=== PATIENT | male | born 1950 | race Caucasian/White ===

== ENCOUNTER 2020-05-09 16:44 | Outpatient (REF) | payer MEDICARE, BC, SELFPAY ==
--- NOTE | 2020-05-09 16:55 | CT_ITS ---
EXAMINATION: CT CHEST WITHOUT CONTRAST CLINICAL INFORMATION: Follow-up pneumonia COMPARISON: Previous chest CT December 2019 and chest x-ray January 2020 TECHNIQUE: Multidetector volumetric CT imaging of the chest was done. Axial MIP volume rendering provided. Sagittal and coronal reformatted images were obtained. This CT examination was performed using dose optimization techniques as appropriate, variously including the following: *Automated exposure control *Adjustment of mA and/or kV according to patient size (this includes techniques or standardized protocols for targeted exams where dose is matched to indication/reason for exam; i.e. extremities or head) *Use of iterative reconstruction technique DLP: 268 mGy-cm FINDINGS: LUNGS: There is evidence of mild paraseptal emphysema. There is new right upper lobe volume loss. The previously identified parenchymal consolidation with air bronchograms and cavity formation in the anterior segment of the right upper lobe and central masslike consolidation in the right middle lobe has significantly decreased in size. There is focal bronchiectasis, and atelectasis or scarring seen in the anterior segment of the right upper lobe. This has areas of atelectasis or spiculated that extends to the anterior pleural surface and the minor fissure. Appearance is suggestive of postinflammatory scarring. There are small surrounding groundglass attenuation areas, for example in the right upper lobe axial image 208 series 5 that appear peribronchial and more geographic areas of increased attenuation in the right middle lobe, for example axial image 225 series 5. There is a 3 mm peripheral right lower lobe nodule axial image 320 series 5. The lungs are otherwise clear. The previously identified heterogeneous left upper lobe nodule axial image 28 series 4 and patchy peribronchial nodules in the right upper lobe on December 2019 exam are no longer seen. No endobronchial or endotracheal lesion is seen. MEDIASTINUM: The visualized thyroid gland is unremarkable. There are small mediastinal lymph nodes. These appear decreased in size from previous exam. The heart does not appear enlarged. There is coronary artery and aortic valve calcification. The ascending thoracic aorta is slightly dilated measuring up to 4.3 cm. The aortic arch and descending thoracic aorta are upper normal in size. There is no pericardial effusion. There are small cardiophrenic angle or anterior diaphragmatic lymph nodes that appear unchanged. PLEURA: There is no pleural effusion. No pleural mass or thickening. AXILLA: No lymphadenopathy. UPPER ABDOMEN: The spleen is enlarged measuring at least 14.5 cm in length. There is a 1.2 cm low-attenuation lesion seen in the spleen. There are bilateral renal cysts. There is a small 3 mm stone in the lower pole of the right kidney. There is mild dilatation of the right renal pelvis and visualized right proximal ureter. There are postsurgical changes to the stomach. OSSEOUS STRUCTURES: There are degenerative changes of the spine. IMPRESSION: Interval improvement in right upper and right middle lobe pneumonia. There is residual scarring, focal bronchiectasis and volume loss to the right upper lobe. There are small peribronchial areas of groundglass attenuation seen in the right upper lobe and more geographic area of groundglass attenuation in the adjacent right middle lobe. Mild paraseptal emphysema. Coronary artery calcification. Slightly dilated ascending thoracic aorta. Enlarged spleen. Stable 1.2 cm splenic lesion. Bilateral renal cysts. Small right lower pole renal stone. Fullness/mild dilatation of the visualized right renal pelvis and proximal ureter. Postsurgical changes to the stomach.
== END 2020-05-09 16:45 | disposition home or self-care (01) ==
LOC: HO.CT 16:44
PROVIDERS: Visit Provider Internal Medicine
DX: R91.8 Other nonspecific abnormal finding of lung field (principal)
CPT/HCPCS: 71250

== ENCOUNTER → 2020-05-15 13:44 | Outpatient (BNVA) | payer MEDICARE, BC, SELFPAY | PROVIDERS: Visit Provider Internal Medicine | DX: G47.33 Obstructive sleep apnea (adult) (pediatric) (principal); Z87.01 Personal history of pneumonia (recurrent) | CPT/HCPCS: 99213 ==

== ENCOUNTER 2020-11-06 12:42 | Outpatient (REF) | payer MEDICARE, BC, SELFPAY ==
--- NOTE | ~2020-11-06 | CT_ITS ---
EXAMINATION: CT CHEST WITHOUT CONTRAST CLINICAL INFORMATION: Pneumonia. COMPARISON: CT chest 05/09/2020. TECHNIQUE: Multidetector volumetric CT imaging of the chest was done. Axial MIP volume rendering provided. Sagittal and coronal reformatted images were obtained. This CT examination was performed using dose optimization techniques as appropriate, variously including the following: *Automated exposure control *Adjustment of mA and/or kV according to patient size (this includes techniques or standardized protocols for targeted exams where dose is matched to indication/reason for exam; i.e. extremities or head) *Use of iterative reconstruction technique DLP: 190 mGy-cm FINDINGS: RAILCAR SWITCHER: Unremarkable chest exam. LUNGS: The lungs are well-expanded and clear of acute pneumonic process. There are postsurgical changes in the right upper lobe with minimal scarring. No pulmonary nodule, mass or groundglass density seen. MEDIASTINUM: The thyroid lobes are symmetric and normal. The central trachea and the bronchi are widely patent. Heart size and the great vessels are normal caliber. No abnormal size mediastinal lymph nodes or mass seen. There is no pericardial effusion. Coronary artery calcifications are noted. PLEURA: There is no pleural effusion. No pleural mass or thickening. AXILLA: No lymphadenopathy. UPPER ABDOMEN: Visualized liver, spleen, pancreas and bilateral adrenal glands are unremarkable. Gastric surgical changes are seen. There is a small 2.7 cm cyst upper pole right kidney OSSEOUS STRUCTURES: There there is no lytic or sclerotic process. There is mild ventral spondylosis throughout mid and lower dorsal spine. CT/CT chest wo con IMPRESSION: Postsurgical changes along the right upper lobe with scarring. No recurrent mass, lymph node or acute consolidation. Post surgical changes along the post gastric surgical changes. 2.7 cm upper pole right renal cyst
== END 2020-11-06 12:43 | disposition home or self-care (01) ==
LOC: HO.CT 12:42
PROVIDERS: Visit Provider Internal Medicine
DX: J18.9 Pneumonia, unspecified organism (principal)
CPT/HCPCS: 71250

== ENCOUNTER → 2021-02-11 10:43 | Outpatient (BNVA) | payer MEDICARE, BC, SELFPAY | PROVIDERS: Visit Provider Internal Medicine | DX: J98.4 Other disorders of lung (principal); G47.33 Obstructive sleep apnea (adult) (pediatric) | CPT/HCPCS: 99212 ==

== ENCOUNTER → 2022-04-14 11:02 | Outpatient (BNVA) | payer MEDICARE, BC, SELFPAY | PROVIDERS: Visit Provider Internal Medicine | DX: G47.33 Obstructive sleep apnea (adult) (pediatric) (principal); J18.9 Pneumonia, unspecified organism; J98.4 Other disorders of lung | CPT/HCPCS: 99212 ==

== ENCOUNTER 2025-02-25 12:40 | Outpatient (AMB) | payer MEDICARE, BC, SELFPAY ==
--- OUTSIDE RECORDS SUMMARY | 2024-05-15 11:12 | XMS_ITS | Encounter Summary ---
Author Organization [facility] [place] [address] Care Team Providers Care Hedge Fund Manager Name Role Phone Ghanshyam Ceja DO Primary Care Provider [phone] Encounter Details Date Type Department Care Team (Latest Contact Info) Description 05/15/2024 11:12 AM EDT Hospital Encounter TH HISTORIC ENCOUNTERS EASTERN CONVERSION ONLY Migraine without aura, not intractable, without status migrainosus Social History Tobacco Use Types Packs/Day Years Used Date Smoking Tobacco: Former Cigarettes Q uit: 08/01/2000 Smokeless Tobacco: Never Alcohol Use Standard Drinks/Week Comments No 0 (1 standard drink = 0.6 oz pur e alcohol) Sex and Gender Information Value Date Recorded Sex Assigned at Not on file Legal Sex Male 4:47 PM EST Gender Identity Not on file Sexual Orientation Not on file documented as of this encounter Last Filed Vital Signs Vital Sign Reading Time Taken Comments Blood Pressure - - Pulse - - Temperature - - Respiratory Rate - - Oxygen Saturation - - Inhaled Oxygen Concentration - - Weight 91.6 kg (202 lb) 01/02/2024 11:59 AM EDT Height 175.3 cm (5' 9 ) 01/02/2024 11:59 AM EDT Body Mass Index 29.83 01/02/2024 11:59 AM EDT documented in this encounter Plan of Treatment Not on file documented as of this encounter Procedures Procedure Name Priority Date/Time Associated Diagnosis Comments MRI BRAIN WITH AND WITHOUT IV CONTRAST Routine 05/15/2024 11:39 AM EDT Migraine without aura, not intractable, without status migrainosus documented in this encounter Results * MRI BRAIN WITH AND WITHOUT IV CONTRAST (05/15/2024 11:39 AM EDT) Anatomical Region Laterality Modality Magnetic Resonan ce 05/01/2024 8:08 AM EDT Narrative 05/15/2024 12:47 PM EDT MRI brain with and without gadolinium Migraine without aura chronic daily headache Bones and 20 Prior: None FINDINGS: Ventricles: Normal: ventricles are normal in size, position and configuration. No evidence of obstructive hydrocephalus or intraventricular mass/hemorrhage. Brain parenchyma: Normal: No evidence of acute large vessel infarction, intracranial hemorrhage, mass or midline shift. No evidence of significant sulcal widening to suggest cerebral atrophy. No evidence of downward herniation. The cerebellar tonsils are grossly in normal position. The brainstem shows no evidence of mass, infarction or hemorrhage. White matter: Normal: The white matter of the cerebral and cerebellar hemispheres shows no evidence of increased T2 signal or microvascular ischemic change. Skullbase: Normal: No evidence of sellar or parasellar mass. The visualized portions of the central skull base are normal. The mastoid air cells are clear without evidence of fluid or destruction. The remainder of the temporal bones are normal. Extracranial structures: Normal: No calvarial fracture noted. The orbits show no evidence of mass. The remainder of the scalp and overlying subcutaneous tissues are normal Sinuses: Normal: The paranasal sinuses are well developed and aerated. No evidence of inspissated secretions, mucoperiosteal thickening or air-fluid level. Vasculature: Normal: No evidence of occlusion of the internal carotid, vertebral or basilar arteries. No aneurysm or additional vascular anomaly. Extra-axial space: Normal: No evidence of subarachnoid, subdural or epidural hemorrhage. No dural thickening. The visualized intracranial structures including the brain parenchyma, meninges, skull base show no evidence of abnormal enhancement or mass. IMPRESSION : Normal MRI brain Report reviewed and signed by : Dr. Niall Cannon MD on 05/15/2024 12:47 PM. Workstation Name - [id number] Procedure Note Niall Cannon MD - 05/28/2024 MRI brain with and without gadolinium Migraine without aura chronic daily headache Bones and 20 Prior: None FINDINGS: Ventricles: Normal: ventricles are normal in size, position andconfiguration. No evidence of obstructive hydrocephalus orintraventricular mass/hemorrhage. Brain parenchyma: Normal: No evidence of acute large vessel infarction,intracranial hemorrhage, mass or midline shift. No evidence of significantsulcal widening to suggest cerebral atrophy. No evidence of downwardherniation. The cerebellar tonsils are grossly in normal position. Thebrainstem shows no evidence of mass, infarction or hemorrhage. White matter: Normal: The white matter of the cerebral and cerebellarhemispheres shows no evidence of increased T2 signal or microvascularischemic change. Skullbase: Normal: No evidence of sellar or parasellar mass. Thevisualized portions of the central skull base are normal. The mastoid aircells are clear without evidence of fluid or destruction. The remainder ofthe temporal bones are normal. Extracranial structures: Normal: No calvarial fracture noted. The orbitsshow no evidence of mass. The remainder of the scalp and overlyingsubcutaneous tissues are normal Sinuses: Normal: The paranasal sinuses are well developed and aerated. Noevidence of inspissated secretions, mucoperiosteal thickening or air-fluidlevel. Vasculature: Normal: No evidence of occlusion of the internal carotid,vertebral or basilar arteries. No aneurysm or additional vascularanomaly. Extra-axial space: Normal: No evidence of subarachnoid, subdural orepidural hemorrhage. No dural thickening. The visualized intracranial structures including the brain parenchyma,meninges, skull base show no evidence of abnormal enhancement or mass. IMPRESSION : Normal MRI brain Report reviewed and signed by : Dr. Niall Cannon MD on 2:47 PM. Workstation Name - [id number] Krishna Anderson MD IMG MRI PROCEDURES Final Re sult documented in this encounter Visit Diagnoses Diagnosis Migraine without aura, not intractable, without status migrainosus documented in this encounter Care Teams Hedge Fund Manager Relationship Specialty Start Date End Date Ghanshyam Ceja DO [address] [place] [address] PCP - General Family Medicine 07/24/20 documented as of this encounter
--- NOTE | 2025-02-25 12:53 | A.OFFVIS_ITS ---
Intake Visit Reasons: 6 mnts Allergies Penicillins Allergy (Verified 04/14/22 12:04) Unknown Medication List - Last Reconciled 02/25/25 by Krishna Anderson MD acetaminophen (Tylenol Extra Strength) 500 mg PO Q6H PRN allopurinol 100 mg PO DAILY alprazolam 0.25 mg PO DAILY PRN amitriptyline 75 mg PO BEDTIME vepdkclajp-jgsztspkqw-hjc-cod [id number] mg 1 cap PO Q4H PRN cholecalciferol (vitamin D3) 200 mcg PO DAILY ferrous gluconate (Fergon) 120 mg PO DAILY ibuprofen (Advil) 200 mg PO Q6H PRN pseudoephedrine HCl (Sudafed) 30 mg PO BID PRN sumatriptan succinate mg PO tamsulosin 0.8 mg PO DAILY thiamine HCl (vitamin B1) 100 mg PO DAILY trazodone 150 mg PO BEDTIME HPI Comments Details: 74 years old left-handed man with history of obesity, status post bariatric surgery, gout, anxiety disorder, and migraine headaches. He was doing okay but stated that 50 mg sumatriptan did not work as well as 100 mg and he was using additional medicine was it. Sometime he was using Fioricet as needed. He has stopped taking verapamil and noted that his mood was different and he was mildly short tempered. In addition, now he was taking 0.25 mg alprazolam twice a day. [facility] Medical History (Updated 02/25/25 @ 13:00 by Krishna Anderson MD) Insomnia Anxiety Peripheral neuropathy Vasomotor rhinitis Gout Migraine without aura Scarring of lung RAVINDER (obstructive sleep apnea) Pneumonia Social History Patient Tobacco Use Status: Former Tobacco user Years Smoked: 1997 Review of Systems Const Details: Constitutional:?No fever, chills, fatigue, weight loss, or night sweats. HEENT:?No headache, vision changes, hearing loss, nasal congestion, sore throat. Neurological:?No dizziness, syncope, seizures, numbness, tingling, weakness, tremors, memory loss. Psychiatric:?No anxiety, depression, mood swings, sleep disturbance, or hallucinations. Endocrine:?No heat/cold intolerance, polydipsia, polyuria, or hair/skin changes. Hematologic/Lymphatic:?No easy bruising, bleeding, or lymphadenopathy. Integumentary (Skin):?No rash, lesions, itching, or color changes. ? Physical Exam Neuro Other: Mental Status: Alert and oriented to person, place, and time. Normal attention. Normal spont aneous speech, fluency, and comprehension. No obvious issues with mood and memory. Affect is appropriate. Cranial Nerves: CN II: Visual dodge full to confrontation, visual acuity intact. CN III, IV, : Pupils equal, round, reactive to light and accommodation. Extraocular movements are normal. CN V: Facial sensation is normal. CN VII: Facial movements symmetrical. CN VIII: Hearing intact to bedside conversation is normal. CN IX, X: Palate elevates symmetrically. CN XI: Shoulder shrug and head turn symmetrical. CN XII: Tongue midline without atrophy or fasciculations. Extrapyramidal: Full facial expressions and blinking. No rigidity. Movements are appropriate with no tremor or abnormality. Speech: Normal; no dysarthria or tremor. Assessment & Plan Assessment & Plan (1) Migraine with aura, not intractable, without status migrainosus: Comment: Meds tried: Topiramate, amitriptyline, propranolol. Verapamil, sumatriptan, forecast, emgality. Code(s): G43.109 - Migraine with aura, not intractable, without status migrainosus Category: Medical (2) Anxiety disorder: Code(s): F41.9 - Anxiety disorder, unspecified Category: Medical Qualifiers: Anxiety disorder type: unspecified anxiety disorder Qualified Code(s): F41.9 - Anxiety disorder, unspecified Plan Impression: a: Migraine w/o aura b: Anxiety do c: Insomnia is treated by his PCP Rec: a: Amitryptiline 75mg at night b: Alprazolam 0.25mg bid as needed c: Sumatriptan 100mg one a day as needed d: Fiorecet 1-2 a day as needed Medications: New amitriptyline 75 mg PO BEDTIME 90 tabs 0RF zrzhdyxozv-ooijrmywjzbad-ojkk 50-325-40 mg 1 tab orally 1-2 a day as needed PRN; 14 tabs 5RF pain 30 days Changed From sumatriptan succinate PO To sumatriptan succinate 100 mg orally 1 a day as needed; Coding Level of Care Code Est Pt Level 4 (43960) Diagnoses Migraine with aura, not intractable, without status migrainosus G43.109 Anxiety disorder, unspecified type F41.9 Anxiety disorder type: unspecified anxiety disorder
--- OUTSIDE RECORDS SUMMARY | 2025-02-25 13:27 | XMS_ITS | Clinical Summary ---
Author Organization [facility] Address [address] [place] [address] Care Team Providers Care Computer Systems Software Architect Name Role Phone Ghanshyam Ceja DO Primary Care Provider [phone] Allergies Active Allergy Reactions Criticality Noted Date Comments Penicillins Hives Medium 01/01/2014 Medications Medication Sig Dispensed Refills Start Date End Date Status acetaminophen (TYLENOL) 325 MG tablet Take 2 tablets (650 mg total) by mouth daily. 0 Active vitamin C (ASCORBIC ACID) 500 MG tablet Take 2 tablets (1,000 mg total) by mouth daily. 0 Active atorvastatin (LIPITOR) 10 MG tablet Take 2 tablets (20 mg total) by mouth every evening. 0 Active Thiamine Mononitrate (VITAMIN B1 PO) Take by mouth daily. 0 Active eszopiclone (LUNESTA) tablet Take 1 tablet (3 mg total) by mouth every night at bedtime. Take immediately before bedtime 0 Active allopurinol (ZYLOPRIM) 300 MG tablet Take 1 tablet (300 mg total) by mouth daily. 0 Active traZODone (DESYREL) 300 MG tablet Take 1 tablet (300 mg total) by mouth every night at bedtime. 0 Active VITAMIN D PO Take 7,200 Units by mouth daily. 0 Active CALCIUM PO Take by mouth daily. 0 Active ferrous gluconate (FERGON) 240 (27 FE) MG tablet Take 1 tablet (240 mg total) by mouth 3 (three) times a day with meals. 0 Active SUMATRIPTAN SUCCINATE PO Take 100 mg by mouth as needed. 0 Active ALPRAZolam (XANAX) 0.25 MG tablet Take 1 tablet (0.25 mg total) by mouth 3 (three) times a day as needed for anxiety. 0 Active amitriptyline (ELAVIL) tablet 25 mg Take 3 tablets (75 mg total) by mouth every night at bedtime. 0 Active ACETAMINOPHEN-BUTA LBITAL 50-325 MG TABS Take by mouth. 0 Active tamsulosin (FLOMAX) 0.4 MG CAPSIndications:BP H with obstruction/lower urinary tract symptoms Take 2 capsules (0.8 mg total) by mouth daily. 180 capsule 3 09/16/2023 Active Additional Information Patient taking differently:0.8 mg OralEvery Evening, Reason: Other, Reported on 12/30/2023 Active Problems Problem Noted Date Diagnosed Date Personal history of colonic polyps 11/11/2022 Overview: Added automatically from request for surgery [id number] PUD (peptic ulcer disease) 11/11/2022 Overview: Added automatically from request for surgery [id number] Upper abdominal pain, unspecified 11/11/2022 Overview: Added automatically from request for surgery [id number] Recurrent left inguinal hernia 05/05/2020 Resolved Problems Problem Noted Date Diagnosed Date Resolved Date Recurrent right inguinal hernia 01/23/2014 05/05/2020 Social History Tobacco Use Types Packs/Day Years Used Date Smoking Tobacco: Former Cigarettes Q uit: 08/01/2000 Smokeless Tobacco: Never Tobacco Cessation:Counseling Given: Not Answered Comments:quit 15 years ago Alcohol Use Standard Drinks/Week Comments No 0 (1 standard drink = 0.6 oz pur e alcohol) Sex and Gender Information Value Date Recorded Sex Assigned at Male 05/21/2020 3:54 PM EDT Gender Identity Not on file Sexual Orientation Not on file Job Start Date Occupation Industry Not on file Not on file Not on file Last Filed Vital Signs Vital Sign Reading Time Taken Comments Blood Pressure 145/97 01/02/2024 3:45 PM EDT Pulse 107 05/30/2024 1:11 PM EDT Temperature 36.8 C (98.3 F) 05/30/2024 1:11 PM EDT Respiratory Rate 16 01/02/2024 3:45 PM EDT Oxygen Saturation 95% 05/30/2024 1:11 PM EDT Inhaled Oxygen Concentration - - Weight 90.7 kg (200 lb) 05/30/2024 1:11 PM EDT Height 175.3 cm (5' 9 ) 05/30/2024 1:11 PM EDT Body Mass Index 29.53 05/30/2024 1:11 PM EDT Plan of Treatment Health Maintenance Due Date Last Done Comments Hepatitis C Screening 1950 Depression Screening 1963 Preventative Health Evaluation 1969 Fall Risk Assessment 01/25/2016 Hepatitis B Vaccines (2 of 3 - 19+ 3-dose series) 12/01/2021 11/03/2021 COVID-19 Vaccine ( season) 2024 05/26/2023, 05/21/2022, 11/17/2021, Additional history exists Influenza Vaccine (#1) 2025 , 04/13/2022, 04/11/2021, Additional history exists DTap / Tdap / Td (2 - Td or Tdap) 05/31/2028 05/31/2018 Colon Cancer Screening (Colonoscopy) 12/16/2032 12/16/2022 Pneumococcal Vaccine Completed 11/03/2021, 06/01/2019, 06/01/2019 Shingrix-Zoster Vaccine Completed 04/13/2022, 02/09 RSV Adult > 60+ Yrs or Completed 04/19/2023 RSV Ped < 20 months Aged Out No longe r eligible based on patient's age to complete this topic Medical Devices Implanted Type Area Lawn Mower Repairer Device Identifier Shelf Expiration Date Model / Serial / Lot Mesh Marlex Perfix Xl 2x1.6in Nonabs Plug Tapered - [id number] - [id number] Implanted:Qty: 1 on 01/04/2014 by Baron Deng MD at [facility] [place] [facility] Right: Inguinal [employer] 07/06/2018 [id number] / / [id number] Mesh 3dmax Large 6x4in Nonabs Patch Preformed Polypropylene - [id number] - [id number] Implanted:Qty: 1 on 12/30/2014 by Gemini Castellon MD at [facility] [place] [facility] Right: Inguinal [employer] 08/01/2019 [id number] / / [id number] Mesh Marlex 6x3in Patch Knitted Flat Sheet Polypropylene - [id number] - [id number] Implanted:Qty: 1 on 05/26/2020 by Gemini Castellon MD at [facility] [facility] Left: Inguinal [employer] 12/26/2024 [id number] / / [id number] Advance Directives For more information, please contact: [phone] Documents on File Type Date Recorded Patient Front Desk Person Expl anation Advance Directive and Living Will 12/12/2014 2:02 PM Latest Code Status on File Code Status Date Activated Date Inactivated Comments Full Code 12/16/2022 11:42 AM 12/16/2022 6:34 PM This code status was ascertained in the following way: discussion with patient . Care Teams Computer Systems Software Architect Relationship Specialty Start Date End Date Ghanshyam Ceja DO [address] [place] [address] PCP - General Family Medicine 07/24/20
--- OUTSIDE RECORDS SUMMARY | 2025-02-25 13:27 | XMS_ITS | Encounter Summary ---
Author Organization [facility] [address] [place] [address] Care Team Providers Care Solar Photovoltaic Systems Engineer Name Role Phone Luc Cervantes MD Primary Care Provider Un available Pcp, No Primary Care Provider Unavailabl e Encounter Details Date Type Department Care Team (Late st Contact Info) Description 11/13/2019 Scanned Document [address] [address] Luc Cervantes MD Retired provider Social History Tobacco Use Types Packs/Day Years Used Date Smoking Tobacco: Former Smokeless Tobacco: Never Comments:QUIT 1984 Sex and Gender Information Value Date Recorded Sex Assigned at Not on file Legal Sex Male 2:56 PM EDT Gender Identity Not on file Sexual Orientation Not on file documented as of this encounter Plan of Treatment Not on file documented as of this encounter Visit Diagnoses Not on filedocumented in this encounter Care Teams Solar Photovoltaic Systems Engineer Relationship Specialty Start Date End Date Luc Cervantes MD PCP - General Cardiovascular Disease 09/07/19 06/29/20 Pcp, No PCP - General General Medicine 01/18/23 documented as of this encounter
--- OUTSIDE RECORDS SUMMARY | 2025-02-25 13:27 | XMS_ITS | Data Portability ---
Author Organization [place] - [employer] [facility], [facility] Address [address] [place] [address] Assessment Encounter Date Assessment Date Assessment LastModified by Organization Details LastModified Time 09/11/2024 09/11/2024 Right hydrocele-asy mptomatic-fol low --BPH assess with PSA-renal calculi obtain renal ultrasound next year-RTO 1 year [email or web address] Not available 09/11/2024 13:37:41 Plan of Treatment Reminders Order Date Submit Date Provider Last Modified By Organization Details Last Modified Time Details Appointments OFFICE VISIT 20 2024 11:00A M Dr. Cristina Schmitt Not available Not available Not available OFFICE VISIT 15 2025 11:45A M Dr. Vargas Not available Not available Not available Lab PSA, serum or plasma 2024 025 [facility], [address], [place], [address], 09/11/2024 13:37:08 urinal ysis, dipsti ck, auto 2024 025 [facility], [address] [facility], [address] [facility], [place], [address], 09/11/2024 13:37:41 creati nine, urine 2024 025 [facility], [address] [facility], [address], [place], [address], 09/11/2024 13:37:41 Referral None record ed. Procedures None record ed. Surgeries None record ed. Imaging CT, chest, w/o contra st - To be done in mid March 2025. 2024 025 [email or web address] ([facility]), [address] [facility], [address], [place], [address], 09/16/2024 20:30:57 Medication Orders None record ed. Patient TargetsNo targets recorded. Patient Instructions Encounter Date Encounter Id Patient Instructions Last Modified By Organization Details Last Modified Time 09/13/2024 [id number] spirometry testing* [email or web address] Not available 09/16/2024 20:30:57 A review of the patient's current respiratory status and treatment plan was completed and discussed with the patient during the visit. The patient was asked to contact the office should there be any increase in shortness of breath, dyspnea on exertion, cough or new/unexplained symptoms develop. Compliance with the prescribed medical regimen was stressed and any questions or concerns regarding medication reviewed. For any acute respiratory distress the patient is counseled to seek immediate medical attention. [email or web address] Not available 09/13/2024 09:45:23 Continue regular follow-up with cardiology and primary care Patient should remain up-to-date with vaccinations per CDC guidelines Consider echo for follow up on aortic aneurysm at appropriate interval CT scan of the chest non contrast to be done in March 2025 - ordered to [facility] Follow up with me in 6 months Some of the above information is being carried forward from prior medical records so that efficiency, safety, and quality of patient's care is not being compromised. I personally spent 33 minutes on the day of this note providing the above service to the patient in the office. This service included direct consultation with the patient,review of relevant data, formulating the treatment plan including future follow-up as well as time spent preparing clinical documentation. [email or web address] Not available 09/17/2024 19:44:56 Reason for Referral None Reported. Results Created Date Observation Date Name Description Value Unit Range Abnormal Flag Note LastModifiedBy Organization Detail LastModifiedTime 09/11/19 25 09/11/2024 creat inine , urine creatinine 300 mg Not Available [facility] [address] [facility], [address], [place], [address], 09/11/2024 13:34:46 09/11/19 25 09/11/2024 urina lysis , dipst ick, auto Leukocytes Negati ve Not Available [facility] [address], [place], [address], 09/11/2024 13:34:46 09/11/19 25 09/11/2024 urina lysis , dipst ick, auto Nitrite negati ve Not Available [place] [address], [place], [address], 09/11/2024 13:34:46 09/11/19 25 09/11/2024 urina lysis , dipst ick, auto Protein Negati ve Not Available [place] [address], [address], [place], [address], 09/11/2024 13:34:46 09/11/19 25 09/11/2024 urina lysis , dipst ick, auto pH 6.0 Not Available [place] [address], [address], [place], [address], 09/11/2024 13:34:46 09/11/19 25 09/11/2024 urina lysis , dipst ick, auto Blood Negati ve Not Available [place] [address], [address], [place], [address], 09/11/2024 13:34:46 09/11/19 25 09/11/2024 urina lysis , dipst ick, auto Specific Alvin 1.015 Not Available [facility] [address], [address], [place], [address], 09/11/2024 13:34:46 09/11/19 25 09/11/2024 urina lysis , dipst ick, auto Ketone Negati ve Not Available [facility] [place] [address], [address], [place], [address], 09/11/2024 13:34:46 09/11/19 25 09/11/2024 urina lysis , dipst ick, auto Glucose Negati ve Not Available [facility] [address], [place], [address], 09/11/2024 13:34:46 09/13/19 25 09/13/2024 karan metry testi ng* FVC: 83 Not Available [facility] [address], [address], [place], [address], 09/13/2024 14:38:03 09/13/19 25 09/13/2024 karan metry testi ng* FEV1: 92 Not Available [facility] [address], [place], [address], 09/13/2024 14:38:03 09/13/19 25 09/13/2024 karan metry testi ng* FEV1/FVC%: 110 Not Available [facility] [address], [place], [address], 09/13/2024 14:38:03 09/13/19 25 09/13/2024 karan metry testi ng* FEF 25-75: 119 Not Available [facility] [address], [place], [address], 09/13/2024 14:38:03 09/13/19 25 09/13/2024 karan metry testi ng* Conclusion: Normal Not Available [facility] [address], [place], [address], 09/13/2024 14:38:03 Result Notes None recorded. Problems Name Problem SNOMED Code Status Onset Date Resolution Date Notes Provider Name and Address Organization Details Recorded Time Recurrent left inguinal hernia 198615192 Active 2019 Recurrent left inguinal hernia Not Available [facility] 4 20:06:14 Peptic ulcer 18766003 Active 2022 PUD (peptic ulcer disease) - Overview: Added automatica lly from request for surgery [id number] Not Available [facility] 4 20:06:14 Upper abdominal pain 93781623 Active 2022 Upper abdominal pain, unspecifie d - Overview: Added automatica lly from request for surgery [id number] Not Available [facility] 4 20:06:14 History of polyp of colon 308939834 Active 2022 Personal history of colonic polyps - Overview: Added automatica lly from request for surgery [id number] Not Available [facility] 4 20:06:15 Benign prostatic hyperplas ia with outflow obstructi on 315127908 Active 2024 ALEKSANDRA FRANCOISE [place], [place] - [facility] 5 11:11:39 Kidney stone 58987011 Active 2024 Rafita Vargas MD [address] [facility] [place], [address] , [place] - [facility] 5 13:31:48 Problem Notes None recorded. Medical Equipment None Reported. Allergies Allergen ID Allergen Name Allergen Category Reaction Reaction Severity Criticality Documentation Date Start Date Code Code System Note Provider Name and Address Organization Details Recorded Time 576183 Product containin g penicilli n (product) medicatio n Not available Not available Not available 07/02/20242013 50044 8001 SNOMED React ion: Hives , sever ity: Unkno wn Not Available [facility] 4 22:06:33 Medications Name Sig Start Date Stop Date Status Note LastModified by Organization Details LastModified Time Prescriptio n - Renewal active Not Available Not Available Not Available acetaminoph en 325 mg tablet Take 2 tablets (650 mg total) by mouth daily. active Not Available Not Available No t Available atorvastati n 10 mg tablet Take 2 tablets (20 mg total) by mouth every evening. active Not Available Not Available No t Available cefpodoxime 100 mg tablet Take 1 tablet (100 mg total) by mouth 2 (two) times a day. 12/15 completed Not Available Not Available Not Available sucralfate 1 gram tablet Take 1 tablet (1 g total) by mouth 4 (four) times a day for 14 days. 08/21 completed Not Available Not Available Not Available oxycodone 5 mg/5 mL oral solution Take 5 mL (5 mg total) by mouth every 3 (three) hours as needed for pain. 12/15 completed Not Available Not Available Not Available butalbital 50 mg-acetamin ophen 325 mg tablet Take by mouth. active Not Available Not Available No t Available alprazolam 0.25 mg tablet Take 1 tablet (0.25 mg total) by mouth 3 (three) times a day as needed for anxiety. active Not Available Not Available No t Available famotidine 20 mg tablet Take 1 tablet (20 mg total) by mouth 2 (two) times a day for 14 days. 08/21 completed Not Available Not Available Not Available amitriptyli ne 25 mg tablet Take 3 tablets (75 mg total) by mouth every night at bedtime. active Not Available Not Available No t Available tamsulosin 0.4 mg capsule Take 2 capsules (0.8 mg total) by mouth daily. 2024 active Not Available Not Available Not Avai lable ferrous gluconate 240 mg (27 mg iron) tablet Take 1 tablet (240 mg total) by mouth 3 (three) times a day with meals. active Not Available Not Available No t Available ascorbic acid (vitamin C) 500 mg chewable tablet Take 2 tablets (1,000 mg total) by mouth daily. active Not Available Not Available No t Available ibuprofen 200 mg tablet Take 1 tablet (200 mg total) by mouth every 6 (six) hours as needed for pain. 12/29 completed Not Available Not Available Not Available trazodone 300 mg tablet Take 1 tablet (300 mg total) by mouth every night at bedtime. active Not Available Not Available No t Available allopurinol 300 mg tablet Take 1 tablet (300 mg total) by mouth daily. active Not Available Not Available No t Available ondansetron 4 mg disintegrat ing tablet Take 1 tablet (4 mg total) by mouth every 6 (six) hours as needed for nausea for up to 20 days. 08/17 completed Not Available Not Available Not Available doxycycline hyclate 100 mg tablet Take 1 tablet (100 mg total) by mouth 2 (two) times a day. 12/29 completed Not Available Not Available Not Available eszopiclone 3 mg tablet Take 1 tablet (3 mg total) by mouth every night at bedtime. Take immediate ly before bedtime active Not Available Not Available No t Available Arexvy (PF) 120 mcg/0.5 mL IM suspension Inject 1 Dose into the muscle once for 1 dose. 04/19 completed Not Available Not Available Not Available Vitals Date Recorded Body height Body temperature Body mass index (BMI) Body weight Heart rate Oxygen saturation Oxygen saturation in Arterial blood by Pulse oximetry Provider Name and Address Organization Details Last Updated DateTime 5 175.3 cm 97.7 [degF] 29.4 kg/m2 37962.8 8 g 110 /min 96 % 96 % ARYA MACIAS [facility] 5 14:21:24 Social History None recorded. Functional Status None recorded. Mental Status None recorded. Family History Nothing Reported. Medical History No medical history recorded. Past Encounters Encounter ID Performer Location Encounter Start Date Encounter Closed Date Diagnosis/Indication Diagnosis SNOMED-CT Code Diagnosis ICD10 Code Diagnosis Note [id number] Baron Schmitt MD [facility] [address] [facility], [address] [place] [address] 09/13/2024 13:38:11 09/13/2024 15:02:23 Finding of tobacco use and exposure 253833225 Z87.891 Appears to be doing well at present time. Should be considered at increased risk for primary lung malignancy given his heavy smoking history. Last CT scan done in march. Some scarring. Spirometry was fairly normal despite the patient's smoking history with the FEV1 at 92% of predicted. Nodule of lung 867597006 R91.1 CAT scan stable. No suspicious pulmonary nodules identified at this time. 1 year follow-up CT scan of the chest planned for March 2025 History of respiratory disease 577234031 Z87.09 Not active presently but does have chronic nasal congestion . ON BID pseudofed. May benefit from ENT evaluation . Aneurysm o f thoracic aorta 212610294 I71.[address] scan as large as 4.5 cm descending aortic aneurysm. Last CT scan was not confrimato ry. Follow up with Dr Fredo Green ion of coronary artery 475676033 I25.10 Asymptomat ic. Last Cardiac cath did not indicate the presence of enough significan t disease to intervene. Follow up continues. [id number] G Jose Vargas MD [address] [place] [address] 09/11/2024 13:19:53 09/11/2024 13:42:22 Benign prostatic hyperplasia with outflow obstruction 494600556 N40.1 N13.8 Kidney stone 73123384 N2 0.0 Disorder o f male genital organ 27761496 N43.3 Health Concerns Section Related Observation LastModified by Organization Detai ls LastModified Time None Recorded Concern Status LastModified by Organization Details LastModified Time None Recorded Advance Directives Directive None Recorded Payers Insurance Date Sequence Insurance Name Policy Number Policy Lara Covered Member ID Lara Member ID Guarantor Name 09/25/2024 2 [place]LE[place] [id number] Gabriel B Katey [id number] Gabriel B Katey 09/11/2024 1 [place] Gabriel B Katey [id number] Gabriel B Katey
== END 2025-02-25 13:18 | disposition home or self-care (01) ==
LOC: HO.HSM 12:41
PROVIDERS: Visit Provider Psychiatry & Neurology Neurology
DX: G43.109 Migraine with aura, not intractable, without status migrainosus (principal); F41.9 Anxiety disorder, unspecified
CPT/HCPCS: 99214

== ENCOUNTER → 2025-02-25 12:40 | Outpatient (BNVA) | payer MEDICARE, BC, SELFPAY | PROVIDERS: Visit Provider Psychiatry & Neurology Neurology | DX: G43.109 Migraine with aura, not intractable, without status migrainosus (principal); F41.9 Anxiety disorder, unspecified; Z98.84 Bariatric surgery status; Z79.899 Other long term (current) drug therapy | CPT/HCPCS: 99212 ==

== ENCOUNTER 2025-05-20 12:30 | Outpatient (AMB) | payer MEDICARE, BC, SELFPAY ==
--- NOTE | 2025-05-20 12:32 | MHC.OFFVIS ---
Intake Visit Reasons: 4M ELIZABETH Allergies Penicillins Allergy (Verified 04/14/22 12:04) Unknown HPI Comments Details: 75 years old left-handed man with history of obesity, status post bariatric surgery, gout, anxiety disorder, and migraine headaches. He was overall feeling better. Anxiety was control. Headaches were relatively control. [facility] Medical History (Updated 02/25/25 @ 13:00 by Krishna Anderson MD) Insomnia Anxiety Peripheral neuropathy Vasomotor rhinitis Gout Migraine without aura Scarring of lung RAVINDER (obstructive sleep apnea) Pneumonia Social History Patient Tobacco Use Status: Former Tobacco user Years Smoked: 1997 Review of Systems Narrative Constitutional:?No fever, chills, fatigue, weight loss, or night sweats. HEENT:?No headache, vision changes, hearing loss, nasal congestion, sore throat. Neurological:?No dizziness, syncope, seizures, numbness, tingling, weakness, tremors, memory loss. Psychiatric:?No anxiety, depression, mood swings, sleep disturbance, or hallucinations. Endocrine:?No heat/cold intolerance, polydipsia, polyuria, or hair/skin changes. Hematologic/Lymphatic:?No easy bruising, bleeding, or lymphadenopathy. Integumentary (Skin):?No rash, lesions, itching, or color changes. ? Physical Exam Neuro Other: Mental Status: Alert and oriented to person, place, and time. Normal attention. Normal spontaneous speech, fluency, and comprehension. No obvious issues with mood and memory. Affect is appropriate. Cranial Nerves: CN II: Visual dodge full to confrontation, visual acuity intact. CN III, IV, : Pupils equal, round, reactive to light and accommodation. Extraocular movements are normal. CN V: Facial sensation is normal. CN VII: Facial movements symmetrical. CN VIII: Hearing intact to bedside conversation is normal. CN IX, X: Palate elevates symmetrically. CN XI: Shoulder shrug and head turn symmetrical. CN XII: Tongue midline without atrophy or fasciculations. Motor: Bulk and tone normal in all extremities. No significant muscle weakness in arms and legs. No drift. Reflexes: Deep tendon reflexes 2+ and symmetric. Plantar response down-going bilaterally. Coordination: [id number] and jrzd-[id number] testing normal. No dysmetria. Gait and Station: No obvious gait abnormality. No ataxia or instability. Extrapyramidal: Full facial expressions and blinking. No rigidity. Movements are appropriate with no tremor or abnormality. Speech: Normal; no dysarthria or tremor. Assessment & Plan Assessment & Plan (1) Migraine with aura, not intractable, without status migrainosus: Comment: Meds tried: Topiramate, amitriptyline, propranolol. Verapamil, sumatriptan, forecast, emgality. Code(s): G43.109 - Migraine with aura, not intractable, without status migrainosus Category: Medical (2) Anxiety disorder: Code(s): F41.9 - Anxiety disorder, unspecified Category: Medical Plan Impression: a: Migraine w/o aura b: Anxiety do c: Insomnia is treated by his PCP Rec: a: Amitryptiline 75mg at night b: Alprazolam 0.25mg bid as needed c: Sumatriptan 100mg one a day as needed d: Fiorecet 1-2 a day as needed Coding Level of Care Code Est Pt Level 4 (73209) Diagnoses Migraine with aura, not intractable, without status migrainosus G43.109 Anxiety disorder F41.9
== END 2025-05-20 13:00 | disposition home or self-care (01) ==
LOC: HO.HSM 12:31
PROVIDERS: PCP Family Medicine; Referring Provider Family Medicine; Visit Provider Psychiatry & Neurology Neurology
DX: G43.109 Migraine with aura, not intractable, without status migrainosus (principal); F41.9 Anxiety disorder, unspecified
CPT/HCPCS: 99214

== ENCOUNTER → 2025-05-20 12:30 | Outpatient (BNVA) | payer MEDICARE, BC, SELFPAY | PROVIDERS: PCP Family Medicine; Referring Provider Family Medicine; Visit Provider Psychiatry & Neurology Neurology | DX: G43.109 Migraine with aura, not intractable, without status migrainosus (principal); F41.9 Anxiety disorder, unspecified | CPT/HCPCS: 99212 ==